=== PATIENT | female | born 1940 | race Caucasian/White ===

== ENCOUNTER 2019-07-18 15:02 | Inpatient (IN) | payer OTHER ==
[~2019-07-18] VITALS: Ht 162.6 cm; Wt 71.0 kg
--- NOTE | ~2019-07-18 | CON ---
[address] [address] CONSULTATION Name: ROLA MASON Room: [address] IN ..#: [id number] Admission: 07/18/19 Attend Phys: Rodríguez Dwyer MD Discharge: Date of : 38 Report #: [id number] THIS REPORT FOR: //name// cc: SIMÓN León family physician/PCP SIMÓN - Romelia family physician/PCP ~ THIS REPORT FOR: //name// CC: SIMÓN physician/PCP Rodrígeuz CELIS DATE OF SERVICE: 07/22/2019 HEMATOLOGY CONSULTATION HISTORY OF PRESENT ILLNESS: The patient is being seen in consultation at the request of the hospitalist for evaluation of an increase in the lymphocyte count on admission and on repeat studies during the hospitalization. 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 The patient came in through the Emergency Room on 07/18/2019 because of shortness of breath. She had had sensation of having a fever, although she apparently had not taken her temperature and she had a nonproductive cough. She reportedly had not been in close proximity to anyone with any recent infectious illness. The patient reports never before had she been told of any laboratory abnormalities with regard to her blood cell counts. She had not had any preadmission rigors or drenching sweats. She had never been told of any previous lymphadenopathy or splenomegaly. She denies recent bleeding from all sites including no spontaneous epistaxis, gum bleeding, hemoptysis, hematemesis, hematuria, vaginal bleeding, hematochezia, and no melena. Her appetite has recently been good and she had been gaining weight. She has had some sinus problems with resultant coughing. PAST MEDICAL HISTORY: Never ; acute rheumatic fever in childhood; 1991 nephrectomy - reportedly was benign on exam per patient today; right salivary gland infection 8-10 years ago. FAMILY HISTORY: No one has blood diseases. She had 2 brothers, no sisters. SOCIAL HISTORY: She is currently living alone. She drinks very infrequently, when she does, she drinks wine or Lynch. She currently smokes a few cigarettes per day (3-4) and she smoked most of her adult life, but she says she has never been a very heavy smoker and does not think [place] [address] CONSULTATION Name: ROLA MASON Room: [address]#: [id number] Admission: 07/18/19 Attend Phys: Rodríguez Dwyer MD Discharge: Date of : 39 Report #: [id number] cigarettes per day on average. She is not getting out of chronic lung disease. She denies stroke or heart attack. The patient has never had the pneumonia vaccine and she did not get the influenza vaccine this year. REVIEW OF SYSTEMS: Negative for headache, sudden episodes of visual loss. No sores in mouth or swallowing difficulties. No nausea, vomiting, crampy abdominal pain, constipation, or diarrhea and she typically has one bowel movement every morning. At night, she sometimes has to get up once to empty her bladder, but sometimes not at all. She is left handed and has low back pain but no other peripheral arthralgias and the back pain occurred after trauma approximately 6 years ago. PHYSICAL EXAMINATION: GENERAL: Reveals alert, pleasant lady in no acute distress. She is lying semi-upright in droplet isolation in room 220. She had no resting tachypnea. SKIN: Tones were normal. HEENT: Pupils are equal. Sclerae were nonicteric. Extraocular movements were intact without nystagmus. Nasal passages were clear. Oropharynx reveals fairly good dentition. The buccal mucosa is healthy without dryness, ulcers, or exudates. Her tongue was normally papillated and protruded midline to command. She could not open her mouth widely enough for me to see the posterior pharynx. There were no obvious oral ulcers or masses. Her voice quality was normal. NECK: She had normal carotid upstrokes. No cervical lymphadenopathy at any site including anterior cervical, posterior cervical, jugular, digastric, submental, submandibular, preauricular, postauricular, or occipital areas. Similarly, she did not have any supraclavicular, infraclavicular, axillary, or inguinal adenopathy. CHEST: Posterior thorax reveals an exaggerated dorsal kyphosis. She had swollen soft tissue fullness in the lumbosacral area in the midline that she said had been there ever since her back trauma several years ago. She had no resting tachypnea. Her cough was clear on command. There were no wheezes or coarse rhonchi, but she did have diminished air movement sounds in both lung pineda in the bases and some fine rales, especially posterolaterally bilaterally. Anteriorly, her breasts are not examined. HEART: Reveals normal rate and rhythm without murmur. Did not hear a gallop. Heart tones are soft. ABDOMEN: Nontender, nondistended and she did not have any masses or detectable hepatosplenomegaly. EXTREMITIES: Lower extremities reveal no pitting edema, no purpura. Light touch was intact in the great toes and the fifth toes. Upper extremities reveal some mild joint deformities, but nothing significant. MEDICAL DATA: From 07/18/2019, I reviewed the Emergency Room note by Dr. Dey. The admission [place] [address] CONSULTATION Name: ISABELLAROLA Mariano Room: [address] ADM IN [facility].#: [id number] Admission: 07/18/19 Attend Phys: Rodríguez Dwyer MD Discharge: Date of : 39 Report #: [id number] From 07/18/2019, I reviewed the progress note by Dr. Dwyer. She was shown at that time to have developed gram-negative sepsis, presumed viral bronchitis. Today, I was told by the charge nurse that she was COVID-19 negative From admission, white blood cell count was 24,000. The differential included 31% segmented neutrophils, +4% bands, +62% lymphocytes resulting in an absolute lymphocyte count of 8400. She had 1% monocyte, no nucleated RBCs. Hemoglobin 13.4, hematocrit 40.1%, MCV 93.1, RDW 13.2, and platelet count 181,000. Absolute neutrophil count was 15,400. Subsequent absolute neutrophil count was 5500. Gradually, the platelet count has dropped with a platelet count on 07/20 of 120,000. On admission, an NT-proBNP was elevated at 19,340. Troponin was 0.22. Total LDH 303, lactic acid 0.9, albumin 2.5, total protein 6.7. Liver function studies are normal, although the alkaline phosphatase has increased minimally to 135 units. Total bilirubin 0.9, calcium 8.9, creatinine 1.0, and potassium 3.4 today. Fibrinogen on the day after admission was 516. Prothrombin time 11.3 and APTT 41.6. I reviewed the patient's chart yesterday and ordered blood for testing. Flow cytometry was not collected, the patient's nurse today said she had checked with the lab and it is not clear why that was not drawn, but they will come by and try. Quantitative immunoglobulins were drawn and they all came back within the normal range. From 07/18/2019, blood culture grew gram-negative rods. The patient is currently on cefepime and azithromycin. She also has taken several other support medications including potassium, magnesium, ondansetron, promethazine, aspirin, lactobacillus, Lomotil if needed, acetaminophen, and enoxaparin 40 mg subcutaneous at bedtime. IMPRESSION AND PLAN: The patient has mild absolute lymphocytosis, although on one occasion, it was moderately elevated (see above). There is no supporting evidence on physical examination that she has a malignant lymphoproliferative disorder. She could, however, have chronic B cell leukemia. Very mild increase in the lymphocyte count also suggests the possibility of something even less worrisome, chronic B-cell lymphocytosis. I do not need any other blood for testing during this hospital stay. I did not think she needs any imaging studies. She could possibly have splenomegaly, but there is nothing palpable and this could be pursued later. If her other physicians are ready to dismiss her, that is perfectly [place] [address] CONSULTATION Name: ISABELLA,ROLA Mariano Room: [address] IN [facility]#: [id number] Admission: 07/18/19 Attend Phys: Rodríguez Dwyer MD Discharge: Date of : 39 Report #: [id number] like the opportunity to see her in my clinic and I gave her my business card. At this point in time, I will sign off looking forward to see her in the clinic. By: 1900 1948Jaxson Vega MD /randi
[2019-07-18 15:03] VITALS: BP 104/62
[2019-07-18 15:59] LABS: HEMATOCRIT 40.1 % (37.0-47.0); HEMOGLOBIN 13.4 gm/dL (12.0-15.0); MCH 31.1 pg (26.0-34.0); MCHC 33.4 g/dL (28.0-37.0); MCV 93.1 fL (80.0-100.0); MPV 12.5 fl. (7.2-11.1); NUCLEATED RBCS 0 /100WBC; PLATELET COUNT* 181 thou/uL (150-400); RBC 4.31 mil/uL (4.20-5.00); RDW-CV 13.2 % (10.5-14.5)
[2019-07-18 16:12] LABS: CALCIUM 9.1 mg/dL (8.5-10.1); CREATININE 1.8 mg/dL (0.6-1.3); POTASSIUM 4.2 mmol/L (3.5-5.1)
[2019-07-18 16:14] LABS: INFLUENZA A ANTIGEN Negative (Negative); INFLUENZA B ANTIGEN Negative (Negative)
[2019-07-18 16:23] LABS: ALBUMIN 2.5 g/dL (3.4-5.0); TOTAL BILIRUBIN 0.9 mg/dL (<0.1-1.0); TOTAL PROTEIN 6.7 g/dL (6.4-8.2)
[2019-07-18 16:26] LABS: ABSOLUTE LYMPHOCYTES 15.4 thou/uL (0.8-5.3); ABSOLUTE MONOCYTES 0.2 thou/uL (0.0-1.2); ABSOLUTE NEUTROPHILS 8.4 thou/uL (1.6-8.1); ATYPICAL LYMPHS 2 %; PLATELET ESTIMATE ADEQUATE
[2019-07-18 16:27] LABS: TOXIC GRANULATION 1+
[2019-07-18 18:13] VITALS: BP 101/77
[2019-07-18 18:28] VITALS: BP 97/48
--- NOTE | 2019-07-18 19:00 | NUR ---
PT ADMITTED TO ROOM 220 VIA CART FROM ED AT APPROXIMATELY 1800. REPORT RECEIVED FROM ELEN MAURICIO. PT ORIENTED TO ROOM AND CALL LIGHT. ADMISSION ASSESSMENT AND HISTORY COMPLETED. REFER TO CHARTING. SEPSIS SCREENING NEGATIVE. EDEMA NOTED TO BILATERAL LE'S. 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 ON RA SAT 96%. PT IN ENHANCED ISOLATION TO RULE OUT COVID. PT STATES SHE HAS HAD A COUGH FOR A WEEK. PT STATES SHE FELL LAST WEEK. FALL PRECAUTIONS IN PLACE. PT REPOSITIONS SELF WITH REMINDERS. HOURLY ROUNDING OBSERVED. BED IN LOW POSITION. BED ALARM IN PLACE. CALL LIGHT WITHIN REACH. WILL CONTINUE PLAN OF CARE.
[2019-07-18 19:30] VITALS: BP 102/48
[2019-07-18] MEDS ORDERED: ACETAMINOPHEN325 M1 PO (23:24)
[2019-07-18] MEDS ORDERED: ASA81BEC PO (23:25)
[2019-07-18] MEDS ORDERED: OCUVITE ADULT1 EAC1 PO (23:27)
[2019-07-18] MEDS ORDERED: CALCIUM + VITA1 EACH PO (23:27)
[2019-07-19] VITALS: BP 104/44
[2019-07-19 04:00] VITALS: BP 114/52
[2019-07-19 04:56] LABS: HEMATOCRIT 31.9 % (37.0-47.0); MCH 31.3 pg (26.0-34.0); MCHC 33.8 g/dL (28.0-37.0); MCV 92.5 fL (80.0-100.0); MPV 13.2 fl. (7.2-11.1); RBC 3.45 mil/uL (4.20-5.00); RDW-CV 13.1 % (10.5-14.5); WBC 29.3 thou/uL (4.0-11.0)
[2019-07-19 04:58] LABS: HEMOGLOBIN 10.8 gm/dL (12.0-15.0)
[2019-07-19 05:04] LABS: ANION GAP 11 mmol/L (7-16); BUN 46 mg/dL (7-18); CALCIUM 8.3 mg/dL (8.5-10.1); CHLORIDE 100 mmol/L (98-107); CHOLESTEROL 113 mg/dL (<200); CO2 23 mmol/L (21-32); CREATININE 2.3 mg/dL (0.6-1.3); GLUCOSE 148 mg/dL (70-99); HDL CHOLESTEROL 25 mg/dL (>40); LDL CHOLESTEROL 62 mg/dL (<100); MAGNESIUM 1.7 mg/dL (1.8-2.4); POTASSIUM 4.2 mmol/L (3.5-5.1); SODIUM 134 mmol/L (136-145); TC:HDL 4.5 Ratio (Not establshd); TRIGLYCERIDE 132 mg/dL (<150); VLDL 26 mg/dL (<40)
--- NOTE | 2019-07-19 05:04 | NUR ---
PT SLEPT ON AND OFF THIS SHIFT. ASSESSMENT DOCUMENTED. MEDS GIVEN PER E-JUN. IV PATENT. PT TOLERATING ROOM AIR. NO REPORTS OF PAIN. PT BECOMING MORE CONFUSED THROUGH SHIFT. PT HAD A TEMP OF 101.8, PT UNABLE TO TAKE PILLS AT THIS TIME D/T CONFUSION. NOTIFIED, ORDERS RECIEVED. PT ABLE TO FOLLOW COMANDS AFTER TYLENOL. FALL PRECAUTIONS IN PLACE. WILL CONTINUE WITH PLAN OF CARE.
[2019-07-19 05:13] LABS: SERUM ASSESSMENT CLEAR
[2019-07-19 07:27] LABS: BE -0.1 mmol/L (-2 to +3); PCO2 31.9 mmHg (35.0-45.0); pH 7.475 (7.340-7.450)
[2019-07-19 07:30] VITALS: BP 87/44
[2019-07-19 09:37] LABS: APTT 41.6 Seconds (25.0-31.3); INR 1.1; PROTIME 11.3 Seconds (9.20-11.50)
--- NOTE | 2019-07-19 10:12 | EKG ---
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1940 Requested By: Marquis Dey Order Number: [id number] MD: Fer Horner Measurements Intervals [place] Rate: 107 P: 16 WA: 140 QRS: -45 QRSD: 78 T: 144 QT: 347 QTc: 463 Interpretive Statements Sinus tachycardia LAD, consider left anterior fascicular block Abnormal R-wave progression, late transition Abnrm T, consider ischemia, anterolateral lds No previous ECG available for comparison Electronically Signed On 07-19-2019 10:11:41 CDT by Fer Horner [email or web address] <ELECTRONICALLY SIGNED> By: Fer Horner MD, FAC 07/19/19 1011 1531 1531 Fer Horner MD, FAC /EPI
--- NOTE | 2019-07-19 11:59 | NUR ---
Nutrition: Pt admitted with HF, confusion. 2gm Na diet ordered, unsure of intake today. Consult received for poor intake. Wt: 145#. Labs: BG 148, alb 2.5, prealb 15.3, WBC 29.3. RD ordered Ensure Enlive BID to encourage good po intake. Will continue to follow po intake, wt, labs, 07/23/19.
[2019-07-19 12:00] VITALS: BP 99/56
--- NOTE | 2019-07-19 14:07 | EKG ---
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1940 Requested By: Marquis Dey Order Number: [id number] Reading MD: Fer Horner Measurements Intervals [place] Rate: 103 P: 29 WA: 142 QRS: -46 QRSD: 84 T: 143 QT: 359 QTc: 470 Interpretive Statements Sinus tachycardia Probable left atrial enlargement Left anterior fascicular block Abnrm T, probable ischemia, anterolateral lds Compared to ECG 07/18/2019 15:31:03 No significant changes Electronically Signed On 07-19-2019 14:06:33 CDT by Fer Horner [email or web address] <ELECTRONICALLY SIGNED> By: Fer Horner MD, FACC 07/19/19 1406 1541 1541 Fer Horner MD, FAC /EPI
--- NOTE | 2019-07-19 15:56 | NUR ---
CM spoke with Pt's friend, Lisa Rosas [phone], via phone. Per friend, Pt has a brother that lives out of state, but does not have any immediate family in the area, Pt never had children. Friend is Pt's only support. Per friend, she and Pt would get together once/month to go to dinner and their book club. Per friend, she has noticed that Pt has gotten progressively weaker over the past 2 weeks. Pt has stairs and has had difficulty manuevering them. Pt uses a cane for mobility, per friend Pt wants to get a RW. Pt has had a couple of falls at home. Friend contacted the ambulance during Pt's most recent fall, at which time she was provided with [facility] info, [facility] is not going into homes at this time d/t the Covid virus, [facility] put them in contact with [facility]. Pt has a PCP, but hadn't seen her in 6 years, [facility] was to assist with setting Pt up with a PCP, prior to Pt coming to the hospital. Pt is normally independent. No hx of HH or SNF. CM discuss possible need for SNF with friend, friend in agreement. Therapies ordered. Following.
[2019-07-19 16:00] VITALS: BP 118/61
--- NOTE | 2019-07-19 16:26 | 2DMMODE ---
[place] [address] 2 D/M-MODE ECHOCARDIOGRAM Name: ROLA MASON Mariano Room: [address] IN [facility]#: [id number] Admission: 07/18/19 Attend Phys: Rodríguez Dywer, Discharge: Date of : 39 Date of Service: 07/19/19 1625 Report #: [id number] THIS REPORT FOR: cc: FAM - No family physician/PCP FAM - No family physician/PCP Fer Horner MD [facility] ~ APPROVED REPORT Study performed: 07/19/2019 14:40:48 EXAM: Comprehensive 2D, Doppler, and color-flow Echocardiogram Patient Location: In-Patient Room #: [facility] Status: routine BSA: 1.71 HR: 69 bpm BP: 87/44 mmHg Rhythm: NSR Other Information Study Quality: Good Indications Congestive Heart Failure Dyspnea Elevated Troponin 2D Dimensions IVSd: 13.88 (7-11mm) LVOT Diam: 18.56 (18-24mm) LVDd: 45.00 mm PWd: 9.84 (7-11mm) Ascending Ao: 31.73 (22-36mm) LVDs: 29.56 (25-40mm) Aortic Root: 30.34 mm Volumes Left Atrial Volume (Systole) LA ESV Index: 39.80 mL/m2 Aortic Valve AoV Peak Brenden.: 1.53 m/s AO Peak Gr.: 9.34 mmHg LVOT Max P.16 mmHg AO Mean Gr.: 4.79 mmHg LVOT Mean P.98 mmHg LVOT Max V: 1.24 m/s AO V2 VTI: 30.56 cm LVOT Mean V: 0.79 m/[place] [address] 2 D/M-MODE ECHOCARDIOGRAM Name: ROLA MASON Room: [address] IN ..#: [id number] Admission: 07/18/19 Attend Phys: Rodríguez Dwyer, Discharge: Date of : 39 Date of Service: 07/19/19 1625 Report #: [id number] SHAUNA (VTI): 2.16 cm2 LVOT V1 VTI: 24.41 cm Mitral Valve MV Mean Gr.: 1.91 mmHg E/A Ratio: 0.66 MV Decel. Time: 235.35 ms MV E Max Brenden.: 0.56 m/s MV PHT: 68.25 ms MVA (PHT): 3.22 cm2 TDI E/Lateral E': 7.00 E/Medial E': 8.00 Medial E' Brenden.: 0.07 m/s Lateral E' Brenden.: 0.08 m/s Pulmonary Valve PV Peak Brenden.: 0.97 m/s PV Peak Gr.: 3.80 mmHg Tricuspid Valve RAP Estimate: 5.00 mmHg TR Peak Gr.: 21.34 mmHg RVSP: 26.00 mmHg PA Pressure: 26.00 mmHg Left Ventricle The left ventricle is normal size. There is normal LV segmental wall motion. There is normal left ventricular wall thickness. Left ventricular systolic function is normal. The left ventricular ejection fraction is within the normal range. LVEF is 50-55%. Grade I - abnormal relaxation pattern. Right Ventricle The right ventricle is normal size. The right ventricular systolic function is normal. Atria Left atrium is mildly dilated. The right atrium size is normal. Aortic Valve Mild aortic valve sclerosis. No aortic regurgitation is present. There is no aortic valvular stenosis. Mitral Valve There is mitral annular calcification. Trace mitral regurgitation. No evidence of mitral valve stenosis[place] [address] 2 D/M-MODE ECHOCARDIOGRAM Name: ROLA MASON Room: [address]#: [id number] Admission: 07/18/19 Attend Phys: Rodríguez Dwyer, Discharge: Date of : 38 Date of Service: 07/19/19 1625 Report #: [id number] The tricuspid valve is normal in structure. Trace tricuspid regurgitation. estimated pa pressure 30 mm Hg Pulmonic Valve The pulmonary valve is normal in structure. There is no pulmonic valvular regurgitation. Great Vessels The aortic root is normal in size. IVC is normal in size and collapses >50% with inspiration. Pericardium There is no pericardial effusion. <Conclusion> LVEF is 50-55%. Left atrium is mildly dilated. Mild aortic valve sclerosis. <ELECTRONICALLY SIGNED> By: Fer Horner MD, FACC 07/19/19 1625 1625 1625 Fer Horner MD, FACC /INF
--- NOTE | 2019-07-19 16:27 | NUR ---
ASSUMED CARE OF PATIENT AT APPROX 0730. ALERT TO SELF AND TIME. PATINET CONFUSED AND IMPULSIVE. REFUSED TO HAVE STRAIGHT CATH DONE TO OBTAIN UA AND HAVING SOFT STOOLS WITH EACH USE OF THE COMMODE WHICH CONTAMINATES HER URINE. PATIENT OBSERVED ON THE BEDSIDE COMMODE WITH STOOL ON HER HANDS, FEET AND LEGS, SHE HAD BEEN SMEARING IT AROUND ON THE FLOOR WITH HER FEET. WHEN ASKED WHY SHE HAD DONE SO, SHE STATED THAT SHE DID NOT KNOW. CALL LIGHT IS WITHIN REACH. HOURLY ROUNDS COMPLETED. WILL CONTINUE WITH PLAN OF CARE.
[2019-07-19 20:00] VITALS: BP 130/63
[2019-07-20] VITALS: BP 118/59; BP 148/67
[2019-07-20 04:00] VITALS: BP 133/82; BP 147/65
--- NOTE | 2019-07-20 05:13 | NUR ---
ASSUMED PATIENT CARE AT 1900. ASSESSMENT COMPLETED CHARTED. PATIENT IS NSR ON THE MONITOR. HOURLY ROUNDING IN PLACE FOR PATIENT SAFETY. CLWR.
[2019-07-20 05:34] LABS: HEMATOCRIT 34.4 % (37.0-47.0); HEMOGLOBIN 11.3 gm/dL (12.0-15.0); MCH 30.7 pg (26.0-34.0); MPV 12.6 fl. (7.2-11.1); RBC 3.7 mil/uL (4.20-5.00); RDW-CV 13.6 % (10.5-14.5); WBC 30.1 thou/uL (4.0-11.0)
[2019-07-20 05:41] LABS: CALCIUM 8.4 mg/dL (8.5-10.1); CREATININE 1.5 mg/dL (0.6-1.3); POTASSIUM 3.5 mmol/L (3.5-5.1)
--- NOTE | 2019-07-20 07:21 | CON ---
[address] [address] CONSULTATION Name: ROLA MASON Room: [address] IN .R.#: [id number] Admission: 07/18/19 Attend Phys: Rodríguez Dwyer MD Discharge: Date of : 38 Report #: [id number] THIS REPORT FOR: //name// cc: SIMÓN León family physician/PCP SIMÓN - No family physician/PCP ~ THIS REPORT FOR: //name// CC: [facility] physician/PCP Rodríguez Dwyer DATE OF SERVICE: 07/19/2019 INFECTIOUS DISEASE CONSULTATION ATTENDING PHYSICIAN: Rodríguez Dwyer MD REASON FOR EVALUATION: Gram-negative septicemia, also with recent cough, trying to exclude COVID-19. HISTORY OF PRESENT ILLNESS: Chart reviewed, the patient examined. This is a 78-year-old woman, reportedly without significant medical history other than previous nephrectomy in 1991, does have history of depression, ____ encephalopathy as well, presented to the Emergency Room with complaints of dyspnea, although it was not attempted history, questioning was difficult. It is unclear whether she had fevers, occasional cough that is nonproductive and diminished appetite, I believe as well. Denies any significant gastrointestinal-related complaints. Chest x-ray was performed, which showed no acute cardiopulmonary process. Influenza antigen was negative. Lactic acid was elevated at 2.4, mildly elevated creatinine of 1.8. CBC was markedly elevated at 24, interestingly predominance of lymphocytes. CRP 129.5. Urinalysis was not performed, but 1 out of 2 blood cultures were gram-negative rods that returned today. She did have an elevation overnight of 101.8 temperature, empirically started on therapy with azithromycin and ceftriaxone. ALLERGIES: LISTED TO PENICILLIN, SULFA. CURRENT MEDICATIONS: Includes ceftriaxone, azithromycin, aspirin, p.r.n. analgesics and antiemetics. PAST MEDICAL HISTORY: Previous nephrectomy. SOCIAL HISTORY: Smokes reportedly 3 cigarettes a day. No ethanol. No illicit drug use. FAMILY HISTORY: [place] [address] CONSULTATION Name: ROLA MASON Mariano Room: [address] IN [facility]#: [id number] Admission: 07/18/19 Attend Phys: Rodríguez Dwyer MD Discharge: Date of : 39 Report #: [id number] REVIEW OF SYSTEMS: Otherwise, unremarkable. PHYSICAL EXAMINATION: GENERAL: She is alert, cooperative. She is in [id number]-lx-pbggzrmg distress. She appears somewhat undernourished. VITAL SIGNS: Temperature overnight max 101.8, more recently 97.6, pulse 67, respirations 22, blood pressure is 87/44. SKIN: Warm, dry, no rashes. HEENT: Normocephalic. Extraocular muscles are intact. NECK: Supple. LUNGS: Few scattered crackles at the bases. HEART: Regular with occasional ectopy, do not appreciate a murmur. ABDOMEN: Soft, nontender, nondistended. EXTREMITIES: No cyanosis. GENITOURINARY AND RECTAL: Deferred. LABORATORY DATA: This a.m., lactic acid 0.9. Blood culture 1 out of 2 with gram-negative rods. TSH of 0.76. Prealbumin of 15.3. Electrolytes: Sodium 134, potassium 4.2, chloride 100, bicarbonate is 23, anion gap of 11, BUN and creatinine 46 and 2.3. CBC: White count of 29.3, H and H 10.8 and 31.9. Sed rate of 52. ASSESSMENT AND PLAN: Gram-negative septicemia not entirely clear, but would expect a genitourinary tract source given the available data, also has had bit of a cough, although normal chest x-ray at least at this point, continue therapy pending the idea the blood culture result, with the elevated lymphocytes certainly raises question of perhaps a chronic lymphocytic leukemia situation. We will do a peripheral smear to see if that is indicative of any specific abnormality. She remains somewhat tenuous at this point. We will monitor expectantly supportive care. <ELECTRONICALLY SIGNED> By: Greg Santiago MD 07/20/19 0721 1007 [id number] Santiago MD /nt
[2019-07-20 10:02] LABS: URINE BLOOD TRACE (Negative); URINE CLARITY CLEAR; URINE COLOR YELLOW; URINE GLUCOSE-RANDOM NEGATIVE (Negative); URINE KETONES NEGATIVE (Negative); URINE NITRITE-REFLEX NEGATIVE (Negative); URINE PROTEIN NEGATIVE (Negative); URINE UROBILINOGEN 0.2 E.U./dl (0.2-1.0)
[2019-07-20 10:07] LABS: URINE POTASSIUM-RANDOM 22.8 mmol/L
[2019-07-20 10:09] LABS: ICTOTEST (BILI CONFIRMATORY) Negative (Negative); URINE BILIRUBIN 1+ (Negative); URINE LEUKOCYTES-REFLEX 2+ (Negative)
[2019-07-20 10:26] LABS: CASTS None Seen /LPF (None Seen); CRYSTALS None Seen /LPF (None Seen); SQUAMOUS 0-3 Few /LPF (0-3); URINE RBC 0-2 Rare /HPF (0-2); URINE WBC-REFLEX 0-5 Rare /HPF (0-5)
--- NOTE | 2019-07-20 10:58 | CON ---
[address] [address] CONSULTATION Name: ROLA MASON Room: [address] IN [facility]#: [id number] Admission: 07/18/19 Attend Phys: Rodríguez Dwyer MD Discharge: Date of : 39 Report #: [id number] THIS REPORT FOR: //name// cc: SIMÓN León family physician/PCP SIMÓN - Romelia family physician/PCP ~ THIS REPORT FOR: //name// CC: SIMÓN physician/PCP Rodríguez Dwyer DATE OF SERVICE: 07/19/2019 REQUESTING PHYSICIAN: Rodríguez Dwyer MD REASON FOR CONSULTATION: Acute kidney injury. HISTORY OF PRESENT ILLNESS: The patient is a 78-year-old female with history of heart failure and dementia presents with complaints of some shortness of breath. X-ray looked unremarkable. No evidence of fluid overload. Her labs revealed elevated white count of 29,300. She had some lymphocytopenia. The patient had elevated ESR. Her creatinine on admission was 1.8, unknown baseline, is up to 2.3 today. She was hypotensive, blood pressure was 87/44. The patient was started on IV fluids and antibiotics. COVID-19 is in the process of being ruled out. She was started on hydroxychloroquine 400 mg p.o. twice a day. REVIEW OF SYSTEMS: Positive for some weakness. The patient is confused. FAMILY HISTORY: Noncontributory. SOCIAL HISTORY: Unknown. MEDICATIONS: Prior to admission, unknown. PHYSICAL EXAMINATION: GENERAL: She is awake, in no acute distress, confused. VITAL SIGNS: Blood pressure 87/44, heart rate 67, afebrile now, but on admission, temperature was 38.8. HEENT: Pupils round. NECK: Supple. LUNGS: Decreased air movement. CARDIOVASCULAR: Regular rate. ABDOMEN: Soft. LOWER EXTREMITIES: No edema. [address] [address] CONSULTATION Name: ROLA MASON Room: [address]#: [id number] Admission: 07/18/19 Attend Phys: Rodríguez Dwyer MD Discharge: Date of : 39 Report #: [id number] ASSESSMENT: 1. Respiratory problem, possible COVID-19. COVID-19 test is pending. She was started on empiric treatment that would cover COVID-19 and possible bacterial pneumonia if she has bacterial pneumonia or bronchitis. 2. Acute kidney injury, likely due to above problem, she is septic. 3. Baseline creatinine unknown. PLAN: 1. Continue current treatment. 2. We will avoid nephrotoxic medications. 3. Check renal ultrasound. Thank you very much. <ELECTRONICALLY SIGNED> By: Mook Schwartz MD 07/20/19 1058 1224 [id number] Beau Schwartz MD /nt
[2019-07-20 12:21] VITALS: BP 124/51
[2019-07-20 16:47] VITALS: BP 135/73
--- NOTE | 2019-07-20 18:20 | NUR ---
PT HAS RESTED T/O SHIFT. VSS ON RA. PT HAS BEEN FREE OF DIARRHEA T/O SHIFT. PT HAS BEEN COMPLIANT WITH MEDS AND PLEASANT. PT DOES HAVE FREQUENT URINATIONS. CLWR
[2019-07-20 20:00] VITALS: BP 143/60
[2019-07-21] VITALS: BP 153/65
[2019-07-21 04:00] VITALS: BP 163/74
--- NOTE | 2019-07-21 04:42 | NUR ---
ASSUMED PATIENT CARE AT 1900. ASSESSMENT COMPLETED CHARTED. PATIENT IS NSR ON THE MONITOR. HOURLY ROUNDING IN PLACE FOR PATIENT SAFETY. CLWR.
[2019-07-21 06:37] LABS: HEMATOCRIT 33.7 % (37.0-47.0); HEMOGLOBIN 11.3 gm/dL (12.0-15.0); MCH 31.1 pg (26.0-34.0); MCHC 33.6 g/dL (28.0-37.0); MCV 92.7 fL (80.0-100.0); MPV 13.7 fl. (7.2-11.1); PLATELET COUNT* 120 thou/uL (150-400); RBC 3.63 mil/uL (4.20-5.00); RDW-CV 13.7 % (10.5-14.5); WBC 25.2 thou/uL (4.0-11.0)
[2019-07-21 06:47] LABS: CALCIUM 8.9 mg/dL (8.5-10.1); MAGNESIUM 2.1 mg/dL (1.8-2.4); POTASSIUM 3.4 mmol/L (3.5-5.1)
[2019-07-21 08:00] VITALS: BP 168/84
[2019-07-21 09:07] LABS: HEMOGLOBIN 10.8 g/dL (11.1-15.9)
[2019-07-21 10:13] LABS: ABSOLUTE LYMPHOCYTES 5.5 thou/uL (0.8-5.3); ABSOLUTE MONOCYTES 0.5 thou/uL (0.0-1.2); ABSOLUTE NEUTROPHILS 19.2 thou/uL (1.6-8.1); ANISOCYTOSIS 1+; PLATELET ESTIMATE DECREASED; POIKILOCYTOSIS 1+
--- NOTE | 2019-07-21 11:22 | NUR ---
Pt continues to be covid pending, therapies to assess once negative results are received. Pt will likely need skilled. Onc consult pending
[2019-07-21 12:18] VITALS: BP 146/66
--- NOTE | 2019-07-21 17:20 | NUR ---
assumed pt care report received from nurse pt is aox4 forgetful. on ra. o2 saturation is 95%. pt complains of pain in back. tylenol given for pain. pt moved out of bed to chair position. vss. pt changed to medsurg status as ordered. heart monitor retrieved. covid 19 pending result. enhanced isolation maintained. fall precaution in place. call light at reach. will continue to monitor pt
[2019-07-21 20:00] VITALS: BP 175/88
[2019-07-21 22:07] LABS: IgA 88 mg/dL (64-422); IgG 747 mg/dL (700-1600); IgM 42 mg/dL (26-217)
[2019-07-22 00:24] VITALS: BP 184/84
--- NOTE | 2019-07-22 05:33 | NUR ---
PT A&O, RA. BP ELEVATED, NOTIFIED AND ORDER RECEIVED. TYLENOL GIVEN FOR CHRONIC PAIN. UP WITH 1 TO BSC. PT INCONTINENT OF URINE. NO OTHER CONCERNS AT THIS TIME. COVID RESULT CAME BACK NEGATIVE. WILL CONTINUE TO MONITOR.
[2019-07-22 08:00] VITALS: BP 190/80
--- NOTE | 2019-07-22 09:51 | NUR ---
RECEIVED CALL FROM [facility], THEY HAD RECEIVED REFERRAL. THEY WERE PLANNING TO SEE PT AT HOME AND [facility] FOR HH ALSO. MADE AWARE SNF WAS BEING DISCUSSED. [facility] WOULD LIKE TO BE NOTIFIED OF [facility] [phone]
[2019-07-22 12:06] VITALS: BP 161/67
--- NOTE | 2019-07-22 15:56 | NUR ---
CM INFORMED THAT THE PT HAD WORKED WITH P.T. TODAY AND WA SONLY ABLE TO AMBULATE 10' MIN-A. PER P.T. ASSESSMENT PT HAS 20 STEPS TO THE ENTRY OF HER HOME. CM SPOKE TO THE PT TO DISCUSS THIS AND THE PT CONFIRMS THIS INFO, AND TO DISCUSS DISCHARGE PLANNING INCLUDING SNF PLACEMENT AT D/C. PT STATES 'I'M NOT GOING ANYWHERE BUT HOME, AND I KNOW WHAT I AM CAPABLE OF. I SHOULDN'T EVEN BE HERE'. CM ATTEMPTED TO ENCOURAGE AND EDUCATE ON THE IMPORATNCE OF OF SNF PLACEMENT FOR STRENGTHENING PRIOR TO HER RETURN HOME. PT ADAMANTLY REFUSES TO DISCUSS STATING 'I DON'T CARE WHAT YOU SAY. I'M GOING HOME'. CM WILL REMAIN AVAILABLE TO ASSIST AND FOLLOW NEEDED'.
[2019-07-22 20:30] VITALS: BP 178/66
[2019-07-23 04:26] LABS: HEMOGLOBIN 9.9 gm/dL (12.0-15.0); MCH 31.3 pg (26.0-34.0); MCHC 34.2 g/dL (28.0-37.0); MCV 91.6 fL (80.0-100.0); MPV 13.1 fl. (7.2-11.1); RBC 3.16 mil/uL (4.20-5.00); WBC 15.8 thou/uL (4.0-11.0)
[2019-07-23 04:30] VITALS: BP 119/62
--- NOTE | 2019-07-23 05:10 | NUR ---
PT TRANSFERED FROM TELE. A&O, RA. UP TO THE BATHROOM WITH WALKER. MEDS GIVEN ORDERED. PT SLEEPING INTERMITTENTLY, INCONTINENT. TYNENOL GIVEN FOR CHRONIC BACKPAIN. WILL CONTINUE TO MONITOR.
[2019-07-23 07:35] VITALS: BP 170/80
[2019-07-23] MEDS ORDERED: ACIDOPHILUS1 EAC4 PO (08:09)
[2019-07-23] MEDS ORDERED: CEFUROXIME500 MG PO (09:04)
[2019-07-23 11:21] VITALS: BP 170/80
--- NOTE | 2019-07-23 11:58 | NUR ---
Nutrition: Follow up note. Pt with fair appetite. No new labs. Wt stable, 156#. Low nutrition risk.
--- NOTE | 2019-07-23 13:09 | NUR ---
FAXED REFERRAL TO [facility]. NO FAMILY PHYSICIAN LISTED SO TRIED TO CALL PATIENT BUT NO ANSWER. WILL ATTEMPT AGAIN. DCP TO FOLLOW. [facility] [phone]; [phone]
[2019-07-23 15:02] VITALS: BP 170/80
[2019-07-23 15:03] VITALS: BP 170/80
--- NOTE | 2019-07-23 15:30 | NUR ---
PATIENT DISCHARGED TO HOME WITH HOME HEALTH. DISCHARGE PAPERS REVIEWED AND SIGNED. PRESCRIPTIONS AND INFORMATION SHEETS GIVEN. IV REMOVED. PATIENT DENIES ANY FURTHER NEEDS. PATIENT TAKEN BY [employer] TO EXIT. LEFT WITH FRIEND.
--- NOTE | 2019-07-23 16:49 | NUR ---
FAXED DISCHARGE ORDERS, SUMMARY AND UPDATED PROGRESS NOTES TO [facility]. SPOKE TO THE PATIENT AND GAVE HER THE NAME AND NUMBER OF THE HOME HEALTH SERVICE. THEY WILL CONTACT PATIENT THIS EVENING OR TOMORROW TO SCHEDULE THERAPIES. [facility] [phone]; f-[phone]
== END 2019-07-23 15:30 | disposition home health service (06) | DRG 871 ==
LOC: M.ERS 15:02 → M.2W 16:46 → M.TBA-ER 16:46 → M.3W 16:46 → M.2W 18:00 → M.3W 07-22 19:50
PROVIDERS: Emergency Medicine Emergency Medical Services; Internal Medicine Hematology & Oncology; ADMIT Internal Medicine
DX: A41.59 Other Gram-negative sepsis (principal); J18.9 Pneumonia, unspecified organism; N17.9 Acute kidney failure, unspecified; C91.10 Chronic lymphocytic leukemia of B-cell type not having achieved remission; F32.9 Major depressive disorder, single episode, unspecified; F17.210 Nicotine dependence, cigarettes, uncomplicated; F03.90 Unspecified dementia, unspecified severity, without behavioral disturbance, psychotic disturbance, mood disturbance, and anxiety; R53.81 Other malaise; N18.9 Chronic kidney disease, unspecified; I87.8 Other specified disorders of veins; J20.8 Acute bronchitis due to other specified organisms; Z88.0 Allergy status to penicillin; Z88.2 Allergy status to sulfonamides; Z90.5 Acquired absence of kidney; Z79.899 Other long term (current) drug therapy; Z79.82 Long term (current) use of aspirin; Z28.21 Immunization not carried out because of patient refusal